=== PATIENT | male | born 1995 | race Caucasian/White ===

== ENCOUNTER 2017-03-30 10:47 | Emergency (ER) | payer BC ==
[2017-03-30 11:00] VITALS: BP 126/75
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
--- NOTE | 2017-03-30 13:46 | CR ---
Chest: Two views of the chest were obtained. Comparison: No previous chest x-ray. Heart size and mediastinum are normal. Lungs are clear. Bony structures are unremarkable. Impression: 1. Nothing acute is identified on two-view chest x-ray. Diagnostic code #1
== END 2017-03-30 12:48 | disposition home or self-care (01) ==
LOC: JD.ED 10:47
DX: R04.2 Hemoptysis (principal); I95.1 Orthostatic hypotension; F17.210 Nicotine dependence, cigarettes, uncomplicated
CPT/HCPCS: 36415; 71020; 71020-26; 80053; 85025; 85379; 99283; 99284